=== PATIENT | male | born 1940 | race Caucasian/White ===

== ENCOUNTER 2024-07-04 17:10 | Outpatient (REF) | payer MEDICARE, SELFPAY ==
--- NOTE | ~2024-07-04 | US_ITS ---
EXAMINATION: US TRIPLEX LOWER EXTREMITY, RIGHT CLINICAL INFORMATION: Right lower extremity edema. COMPARISON: None available. TECHNIQUE: Color-flow triplex imaging with spectral analysis and compression Doppler were performed on the right lower extremity. FINDINGS: Respiratory variation, normal compression and augmented flow are noted throughout the right lower extremity. The visualized common femoral vein, superficial femoral vein, profunda femoral vein, popliteal vein and midcalf peroneal and posterior tibial venous segments show no evidence of deep venous thrombosis. There is no De Guzman's cyst. Within the right inguinal region, a reniform lymph node is seen with dimensions of 3.9 x 1.1 cm. This shows suboptimal corticomedullary differentiation. US/US venous duplex LE RT IMPRESSION: 1. No evidence of deep venous thrombosis involving the right lower extremity. 2. A nonspecific enlarged right inguinal lymph node is seen. Recommend management on a clinical basis. Electronically signed by: Vladimir Gamino MD 07/04/2024 11:12 PM EDT
== END 2024-07-04 17:11 | disposition home or self-care (01) ==
LOC: HO.US 17:10
PROVIDERS: PCP Internal Medicine; Visit Provider Internal Medicine
DX: M25.571 Pain in right ankle and joints of right foot (principal); R60.0 Localized edema
CPT/HCPCS: 93971